=== PATIENT | male | born 1945 | race Caucasian/White ===

== ENCOUNTER 2016-06-26 07:53 | Day surgery (SDC) | payer OTHER ==
--- NOTE | ~2016-06-26 | EGD ---
EGD REPORT [facility] [address] [address] NAME: CRUZ RO : 47 STATUS : REG [facility]#: [id number] AGE: 70 ADM/REG DATE : 06/26/16 MR#: [id number] REPORT SERV DATE: 06/26/16 DICTATED BY: BRITTNY LONDON DATE: 06/26/16 REPORT STATUS : Draft TRANSCRIBED BY: [employer] DATE: 06/26/16 [facility] Patient Name: Cruz Ro Date of : 1945 Attending MD: BRITTNY LONDON MD Procedure Date No Time: 06/26/2016 Procedure: Upper GI endoscopy Indications: Heartburn, Suspected esophageal reflux Referring MD: SAE DUTTON MD Medicines: as per anesthesia Complications: No immediate complications. Procedure: After obtaining informed consent, the endoscope was passed under direct vision. Throughout the procedure, the patient's blood pressure, pulse, and oxygen saturations were monitored continuously. The GIF [id number] was introduced through the mouth, and advanced to the third part of duodenum. The upper GI endoscopy was accomplished without difficulty. The patient tolerated the procedure. Findings: There were esophageal mucosal changes suspicious for short-segment Hernández's esophagus present in the lower third of the esophagus. The maximum longitudinal extent of these mucosal changes was 3 cm in length. Mucosa was biopsied with a cold forceps for histology in a targeted manner at intervals of 1 cm in the lower third of the esophagus. One specimen bottle was sent to pathology. nodularity noted Localized mild inflammation characterized by erythema was found in the gastric antrum. Biopsies were taken with a cold forceps for histology. The cardia and gastric fundus were normal on retroflexion. The examined duodenum was normal. Impression: - Esophageal mucosal changes suspicious for short-segment Hernández's esophagus. Biopsied. - Gastritis. Biopsied. - Normal examined duodenum. Recommendation: - Await pathology results. - Follow an antireflux regimen. - Continue present medications. Procedure Code(s): --- Professional --- 16691, Esophagogastroduodenoscopy, flexible, transoral; with biopsy, single or multiple EGD REPORT [address] [address] NAME: CRUZ RO : 47 STATUS [place] [facility]#: [id number] AGE: 70 ADM/REG DATE : 06/26/16 MR#: [id number] REPORT SERV DATE: 06/26/16 DICTATED BY: BRITTNY LONDON. DATE: 06/26/16 REPORT STATUS : Draft TRANSCRIBED BY: [employer] DATE: 06/26/16 Diagnosis Code(s): --- Professional --- K22.9, Disease of esophagus, unspecified K29.70, Gastritis, unspecified, without bleeding R12, Heartburn CPT copyright 2013 [employer]. All rights reserved. The codes documented in this report are preliminary and upon ordering box operator review may be revised to meet current compliance requirements. BRITTNY LONDON MD 06/26/2016 10:18 AM This report has been signed electronically. Number of Addenda: 0 Note Initiated On: 06/26/2016 9:44 AM Scope Withdrawal Time 0 hours 0 minutes 0 seconds
[~2016-06-26 07:53] MED LIST: CARDU4 PO; COREG6 PO; FISH-EPA1000 MG PO; FLONASE NAS; GLUCPH PO; KAPIDEX60 MG PO; LIPITOR20 PO; LIPITOR40 PO; LORTAB10 PO; NORCO1 TAB PO; NORV10 PO; NORV5 PO; TRICOR145 PO; ZYRTEC ALLGY10 MG PO; [UNRECOGNIZED DRUG - OTHER] PO
== END 2016-06-26 23:59 | disposition home health service (06) ==
LOC: DMU 07:53
PROVIDERS: Internal Medicine Gastroenterology
PROC: 0DB38ZX Excision of Lower Esophagus, Via Natural or Artificial Opening Endoscopic, Diagnostic (ICD-10-PCS; principal; 2016-06-26 09:30)
DX: K29.70 Gastritis, unspecified, without bleeding (principal); I10 Essential (primary) hypertension; E78.00 Pure hypercholesterolemia, unspecified; K21.9 Gastro-esophageal reflux disease without esophagitis; E11.9 Type 2 diabetes mellitus without complications; M19.90 Unspecified osteoarthritis, unspecified site; F43.10 Post-traumatic stress disorder, unspecified; K22.9 Disease of esophagus, unspecified; F41.9 Anxiety disorder, unspecified; Z87.891 Personal history of nicotine dependence; Z90.49 Acquired absence of other specified parts of digestive tract; Z86.010 Personal history of colon polyps
CPT/HCPCS: 82962; 88305